=== PATIENT | male | born 1985 | race Caucasian/White ===

== ENCOUNTER 2016-10-23 23:08 | Emergency (ER) | payer OTHER ==
[2016-10-24] MEDS ORDERED: MAALOX 30 ML SUSP *UDC As Ordered ONE (00:04)
[2016-10-24] MEDS ORDERED: LIDOCAINE VISCOUS 2% SOLN 15ML UDC As Ordered ONE (00:04)
[2016-10-24] MEDS ORDERED: diphenhydrAMINE 12.5MG/5ML ELIXIR UDC As Ordered ONE (00:05)
[2016-10-24] MEDS ORDERED: predniSONE 20 MG TAB As Ordered ONE (00:07)
--- NOTE | 2016-10-24 00:16 | EDDOCDS ---
Physician Documentation [facility] Name: Gómez Queen Age: 30 yrs Sex: Male : 1985 Arrival Date: 10/23/2016 Time: 23:08 Bed I2 / M2 Private MD: Other - Complete Info On Cds Disposition: 10/24/16 00:03 Discharged to Home/Self Care. Impression: Acute pharyngitis, unspecified. - Condition is Stable. - Discharge Instructions: Pharyngitis. - Prescriptions for magic mouthwash Mucous Membrane Solution - as directed 5 milliliters by ORAL route 3-4 times daily As needed gargle, swish, spit. Maalox, Liquid Benadryl, Viscous Lidocaine. 1:1:1; 237 milliliter. - Medication Reconciliation, Local Pharmacy Hours form. - Follow up: Emergency Department; When: As needed; Reason: Worsening of conditions. Follow up: Private Physician; When: 2 - 3 days; Reason: Wound/Symptom Recheck, Recheck today's complaints, Continuance of care. - Problem is new. - Symptoms are unchanged. Historical: - Allergies: No known drug Allergies; - Home Meds: 1. none - PMHx: none; - PSHx: none; - Social history: No barriers to communication noted, The patient speaks fluent Divehi, Speaks appropriately for age, Smoking status: Patient states was never smoker of tobacco. - Family history: Not pertinent. - : The pt / caregiver states he / she is not on anticoagulants. Home medication list is obtained from the patient. - Exposure Risk Screening:: None identified. Vital Signs: 10/23 23:11 BP 145 / 78; Pulse 76; Resp 18 S; Temp 97.4(O); Pulse Ox 98% on R/A; Weight 85.73 kg / gr2 189 lbs (R); Height 5 ft. 7 in. (170.18 cm) (R); Pain 3/10; 23:11 Body Mass Index 29.60 (85.73 kg, 170.18 cm) gr2 MDM: 23:41 Strep Screen, Nursing ordered. dt4 23:52 GATS (NEGATIVE STREP SCREEN) Ordered. EDMS 23:56 predniSONE 40 mg PO once; administer with food or milk ordered. dt4 23:56 Lidocaine Viscous Liquid 2 % 15 ml Mucous Membrane in affected area once; to mix with dt4 benadryl and maalox, thank you. ordered. 23:56 Alum-Mag Hydroxide-Simeth Suspension 225 mg-200 mg-25 mg/5 mL 30 ml PO once; only 15ml dt4 please, to mix with benadryl and viscous lido. ordered. 10/24 00:05 diphenhydrAMINE 12.5 mg PO once; suspension ordered. dt4 Administered Medications: 00:05 CANCELLED (Other Intervention Used): diphenhydrAMINE (1 mg/kg) Liquid 1 mg/kg PO once; dt4 15ml, to mix with maalox and viscous lidocaine. thank you. 00:10 Drug: Alum-Mag Hydroxide-Simeth 30 ml [aluminum-mag hydroxide-simethicone 225 mg-200 slm mg-25 mg/5 mL oral susp (30 mL)] {Note: 15 ml.} Route: PO; 00:10 Drug: diphenhydrAMINE 12.5 mg Route: PO; slm 00:11 Drug: predniSONE 40 mg [prednisone 20 mg tablet (2 tabs)] Route: PO; slm 00:11 Drug: Lidocaine Viscous 15 ml [Lidocaine Viscous 2 % mucosal solution (15 mL)] Route: slm Mucous Membrane; Site: affected area; Signatures: Dispatcher MedHost EDDelma FloresRN RN Penelope Duran RN RN ld5 Sydnee Todd,TABULATING MACHINE MECHANIC TABULATING MACHINE MECHANIC slAnahi Harden PA-C PA-C dt4 The chart was reviewed and I authenticate all verbal orders and agree with the evaluation and treatment provided.Corrections: (The following items were deleted from the chart) 00:05 10/23 23:56 diphenhydrAMINE (1 mg/kg) Liquid 1 mg/kg PO once; 15ml, to mix with maalox dt4 and viscous lidocaine. thank you. ordered. dt4 MTDD
--- NOTE | 2016-10-24 00:16 | EDDOCDS ---
Nurse's Notes [facility] Name: Gómez Queen Age: 30 yrs Sex: Male : 1985 Arrival Date: 10/23/2016 Time: 23:08 Bed I2 / M2 Private MD: Other - Complete Info On Cds Diagnosis: Acute pharyngitis, unspecified Presentation: 10/23 23:22 Presenting complaint: Patient states: Started coughing at 0300. Had a severe episode jo3 that produced significant amount of bright red bloody mucous. Has spit up blood intermittently through the day. Reports normal stool. Adult Sepsis Screening: The patient does not have new or worsening altered mentation. Patient's respiratory rate is less than 22. Systolic blood pressure is greater than 100. Patient has a qSOFA score of 0- Negative Sepsis Screen. Suicide/Homicide risk assessment- the patient denies having any suicidal and/or homicidal ideations and does not present with any other emotional, behavioral or mental health complaints. Status: The patient is an active duty director of field service. Transition of care: patient was not received from another setting of care. 23:22 Method Of Arrival: Walkin/Carried/Asstd jo3 23:31 Acuity: MONIQUE Level 4 jo3 Triage Assessment: 23:26 General: Appears in no apparent distress, comfortable, Behavior is appropriate for age, jo3 cooperative. Pain: Location: Throat. HIV screening NA for this visit Offered previously. Neurological: Level of Consciousness is awake, alert, Oriented to person, place, time. Respiratory: Airway is patent Respiratory effort is even, unlabored. Derm: Skin is pink, warm & dry. Historical: - Allergies: No known drug Allergies; - Home Meds: 1. none - PMHx: none; - PSHx: none; - Social history: No barriers to communication noted, The patient speaks fluent Persian, Speaks appropriately for age, Smoking status: Patient states was never smoker of tobacco. - Family history: Not pertinent. - : The pt / caregiver states he / she is not on anticoagulants. Home medication list is obtained from the patient. - Exposure Risk Screening:: None identified. Screenin/23 00:11 Screening information is obtained from the patient. Fall risk: No risks identified. slm Assistance ADL's: requires no assistance with activities of daily living. Abuse/DV Screen: The patient / caregiver reports he/she is: not in a situation that causes fear, pain or injury. Nutritional screening: No deficits noted. Advance Directives: Currently, there is no health care proxy. There is no active DNR order. There is no living will. There is no Power of [place]. Advance directive information has not previously been placed in an [facility] medical record. home support is adequate. Assessment: 10/23 23:46 General: Appears in no apparent distress, Behavior is cooperative. Neurological: Level ld5 of Consciousness is awake, alert. EENT: Throat is reddened with gag reflex present. Respiratory: Airway is patent Respiratory effort is even, unlabored. Derm: Skin is intact, Skin is dry. 10/24 00:15 Reassessment: Patient appears in no apparent distress at this time. [facility] Vital Signs: 10/23 23:11 BP 145 / 78; Pulse 76; Resp 18 S; Temp 97.4(O); Pulse Ox 98% on R/A; Weight 85.73 kg gr2 (R); Height 5 ft. 7 in. (170.18 cm) (R); Pain 3/10; 23:11 Body Mass Index 29.60 (85.73 kg, 170.18 cm) gr2 Vitals: 23:11 Log In Time: October 23, 2016 at 23:11. gr2 23:51 Strep Screen is obtained and tested: Negative, a GATSNEG culture is ordered in [facility] ld5 and sent. ED Course: 23:10 Patient visited by Kathe Yo. gr2 23:10 Other - Complete Info On Cds is Private Physician. gr2 23:10 Patient moved to Waiting gr2 23:13 Patient visited by Kathe Yo. gr2 23:13 Patient moved to Pre RCE gr2 23:30 Patient moved to I2 / M2 jo3 23:31 [facility] dt4 23:31 Carlo Menendez DO is Attending Physician. dt4 23:31 Triage Initiated jo3 23:32 Patient visited by Anahi Oliver PA-C. dt4 23:47 Patient visited by Penelope Sanchez RN. ld5 10/24 00:11 The patient / caregiver is instructed regarding the plan of care and ED course. Patient slm has correct armband on for positive identification. Bed in low position. Call light in reach. Side rails up X 1. 00:11 No IV's were initiated during this patient's visit. No procedures done that require slm assistance. 00:12 Patient visited by Sydnee Todd LPN. slm 00:15 Sydnee Todd LPN is Primary Nurse. sl 00:15 Patient visited by Sydnee Todd LPN. [facility] Administered Medications: 00:05 CANCELLED (Other Intervention Used): diphenhydrAMINE (1 mg/kg) Liquid 1 mg/kg PO once; dt4 15ml, to mix with maalox and viscous lidocaine. thank you. 00:10 Drug: Alum-Mag Hydroxide-Simeth 30 ml [aluminum-mag hydroxide-simethicone 225 mg-200 slm mg-25 mg/5 mL oral susp (30 mL)] {Note: 15 ml.} Route: PO; 00:10 Drug: diphenhydrAMINE 12.5 mg Route: PO; slm 00:11 Drug: predniSONE 40 mg [prednisone 20 mg tablet (2 tabs)] Route: PO; slm 00:11 Drug: Lidocaine Viscous 15 ml [Lidocaine Viscous 2 % mucosal solution (15 mL)] Route: slm Mucous Membrane; Site: affected area; Order Results: There are currently no results for this order. Outcome: 00:03 Discharge ordered by Provider. dt4 00:12 No special radiology studies were completed. Property :[facility] 00:12 Discharge Assessment: patient administered narcotics - no. slm 00:15 The following High Risk Discharge criteria are identified: None. Discharged to home slm ambulatory, with significant other. Condition: good. Discharge instructions given to patient, Instructed on discharge instructions, follow up and referral plans. medication usage, Demonstrated understanding of instructions, medications, Pt was receptive of discharge instructions/ teaching. Prescriptions given X 1. 00:15 Patient left the ED. [facility] Signatures: Delma Neal,RN RN gena3 Penelope Sanchez RN RN hero5 Kathe Yo gr2 Sydnee Todd LPN LPN [facility] Anahi Oliver, MERCY PAArturo dt4 MTDD
--- NOTE | 2016-10-26 01:17 | EDDOCDS ---
Physician Documentation [facility] Name: Gómez Queen Age: 30 yrs Sex: Male : 1985 Arrival Date: 10/23/2016 Time: 23:08 Bed I2 / M2 Private MD: Other - Complete Info On Cds Disposition: 10/24/16 00:03 Discharged to Home/Self Care. Impression: Acute pharyngitis, unspecified. - Condition is Stable. - Discharge Instructions: Pharyngitis. - Prescriptions for magic mouthwash Mucous Membrane Solution - as directed 5 milliliters by ORAL route 3-4 times daily As needed gargle, swish, spit. Maalox, Liquid Benadryl, Viscous Lidocaine. 1:1:1; 237 milliliter. - Medication Reconciliation, Local Pharmacy Hours form. - Follow up: Emergency Department; When: As needed; Reason: Worsening of conditions. Follow up: Private Physician; When: 2 - 3 days; Reason: Wound/Symptom Recheck, Recheck today's complaints, Continuance of care. - Problem is new. - Symptoms are unchanged. Historical: - Allergies: No known drug Allergies; - Home Meds: 1. none - PMHx: none; - PSHx: none; - Social history: No barriers to communication noted, The patient speaks fluent Kiswahili, Speaks appropriately for age, Smoking status: Patient states was never smoker of tobacco. - Family history: Not pertinent. - : The pt / caregiver states he / she is not on anticoagulants. Home medication list is obtained from the patient. - Exposure Risk Screening:: None identified. Vital Signs: 10/23 23:11 BP 145 / 78; Pulse 76; Resp 18 S; Temp 97.4(O); Pulse Ox 98% on R/A; Weight 85.73 kg / gr2 189 lbs (R); Height 5 ft. 7 in. (170.18 cm) (R); Pain 3/10; 23:11 Body Mass Index 29.60 (85.73 kg, 170.18 cm) gr2 MDM: 23:41 Strep Screen, Nursing ordered. dt4 23:52 GATS (NEGATIVE STREP SCREEN) Ordered. EDMS 23:56 predniSONE 40 mg PO once; administer with food or milk ordered. dt4 23:56 Lidocaine Viscous Liquid 2 % 15 ml Mucous Membrane in affected area once; to mix with dt4 benadryl and maalox, thank you. ordered. 23:56 Alum-Mag Hydroxide-Simeth Suspension 225 mg-200 mg-25 mg/5 mL 30 ml PO once; only 15ml dt4 please, to mix with benadryl and viscous lido. ordered. 10/24 00:05 diphenhydrAMINE 12.5 mg PO once; suspension ordered. dt4 00:25 [facility] Payment Agreement was scanned into [employer] and attached to record. [facility] 00:26 Financial registration complete. [facility] 12:12 T-Sheet-- Draft Copy was scanned into [employer] and attached to record. gb Administered Medications: 00:05 CANCELLED (Other Intervention Used): diphenhydrAMINE (1 mg/kg) Liquid 1 mg/kg PO once; dt4 15ml, to mix with maalox and viscous lidocaine. thank you. 00:10 Drug: Alum-Mag Hydroxide-Simeth 30 ml [aluminum-mag hydroxide-simethicone 225 mg-200 slm mg-25 mg/5 mL oral susp (30 mL)] {Note: 15 ml.} Route: PO; 00:10 Drug: diphenhydrAMINE 12.5 mg Route: PO; slm 00:11 Drug: predniSONE 40 mg [prednisone 20 mg tablet (2 tabs)] Route: PO; slm 00:11 Drug: Lidocaine Viscous 15 ml [Lidocaine Viscous 2 % mucosal solution (15 mL)] Route: slm Mucous Membrane; Site: affected area; Signatures: Dispatcher MedHo EDAnastasiya Cano, Kwaku Reg Delma ReneRN RN Penelope Duran RN RN hero5 Sydnee Todd LPN LPN slm Anahi Oliver PA-C PA-C dt4 Hook, Sandra [facility] The chart was reviewed and I authenticate all verbal orders and agree with the evaluation and treatment provided.Corrections: (The following items were deleted from the chart) 00:05 10/23 23:56 diphenhydrAMINE (1 mg/kg) Liquid 1 mg/kg PO once; 15ml, to mix with maalox dt4 and viscous lidocaine. thank you. ordered. dt4 Attachments: 10/24 00:25 [facility] 12:12 T-Sheet-- Draft Copy gb Chart Complete MTDD
--- NOTE | 2016-10-26 01:17 | EDDOCDS ---
Physician Documentation [facility] Name: Gómez Queen Age: 30 yrs Sex: Male : 1985 Arrival Date: 10/23/2016 Time: 23:08 Bed I2 / M2 Private MD: Other - Complete Info On Cds Disposition: 10/24/16 00:03 Discharged to Home/Self Care. Impression: Acute pharyngitis, unspecified. - Condition is Stable. - Discharge Instructions: Pharyngitis. - Prescriptions for magic mouthwash Mucous Membrane Solution - as directed 5 milliliters by ORAL route 3-4 times daily As needed gargle, swish, spit. Maalox, Liquid Benadryl, Viscous Lidocaine. 1:1:1; 237 milliliter. - Medication Reconciliation, Local Pharmacy Hours form. - Follow up: Emergency Department; When: As needed; Reason: Worsening of conditions. Follow up: Private Physician; When: 2 - 3 days; Reason: Wound/Symptom Recheck, Recheck today's complaints, Continuance of care. - Problem is new. - Symptoms are unchanged. Historical: - Allergies: No known drug Allergies; - Home Meds: 1. none - PMHx: none; - PSHx: none; - Social history: No barriers to communication noted, The patient speaks fluent Turkmen, Speaks appropriately for age, Smoking status: Patient states was never smoker of tobacco. - Family history: Not pertinent. - : The pt / caregiver states he / she is not on anticoagulants. Home medication list is obtained from the patient. - Exposure Risk Screening:: None identified. Vital Signs: 10/23 23:11 BP 145 / 78; Pulse 76; Resp 18 S; Temp 97.4(O); Pulse Ox 98% on R/A; Weight 85.73 kg / gr2 189 lbs (R); Height 5 ft. 7 in. (170.18 cm) (R); Pain 3/10; 23:11 Body Mass Index 29.60 (85.73 kg, 170.18 cm) gr2 MDM: 23:41 Strep Screen, Nursing ordered. dt4 23:52 GATS (NEGATIVE STREP SCREEN) Ordered. EDMS 23:56 predniSONE 40 mg PO once; administer with food or milk ordered. dt4 23:56 Lidocaine Viscous Liquid 2 % 15 ml Mucous Membrane in affected area once; to mix with dt4 benadryl and maalox, thank you. ordered. 23:56 Alum-Mag Hydroxide-Simeth Suspension 225 mg-200 mg-25 mg/5 mL 30 ml PO once; only 15ml dt4 please, to mix with benadryl and viscous lido. ordered. 10/24 00:05 diphenhydrAMINE 12.5 mg PO once; suspension ordered. dt4 00:25 [facility] Payment Agreement was scanned into [employer] and attached to record. [facility] 00:26 Financial registration complete. [facility] 12:12 T-Sheet-- Draft Copy was scanned into [employer] and attached to record. gb Administered Medications: 00:05 CANCELLED (Other Intervention Used): diphenhydrAMINE (1 mg/kg) Liquid 1 mg/kg PO once; dt4 15ml, to mix with maalox and viscous lidocaine. thank you. 00:10 Drug: Alum-Mag Hydroxide-Simeth 30 ml [aluminum-mag hydroxide-simethicone 225 mg-200 slm mg-25 mg/5 mL oral susp (30 mL)] {Note: 15 ml.} Route: PO; 00:10 Drug: diphenhydrAMINE 12.5 mg Route: PO; slm 00:11 Drug: predniSONE 40 mg [prednisone 20 mg tablet (2 tabs)] Route: PO; slm 00:11 Drug: Lidocaine Viscous 15 ml [Lidocaine Viscous 2 % mucosal solution (15 mL)] Route: slm Mucous Membrane; Site: affected area; Signatures: Dispatcher MedHo EDAnastasiya Cano, Kwaku Reg Delma ReneRN RN Penelope Duran RN RN hero5 Sydnee Todd LPN LPN slm Anahi Oliver PA-C PA-C dt4 Hook, Sandra [facility] The chart was reviewed and I authenticate all verbal orders and agree with the evaluation and treatment provided.Corrections: (The following items were deleted from the chart) 00:05 10/23 23:56 diphenhydrAMINE (1 mg/kg) Liquid 1 mg/kg PO once; 15ml, to mix with maalox dt4 and viscous lidocaine. thank you. ordered. dt4 Attachments: 10/24 00:25 [facility] 12:12 T-Sheet-- Draft Copy gb Chart Complete MTDD
--- NOTE | 2016-10-26 01:17 | EDDOCDS ---
Nurse's Notes Name: Gómez Queen Age: 30 yrs Sex: Male : 1985 Arrival Date: 10/23/2016 Time: 23:08 Bed I2 / M2 Private MD: Other - Complete Info On Cds Diagnosis: Acute pharyngitis, unspecified Presentation: 10/23 23:22 Presenting complaint: Patient states: Started coughing at 0300. Had a severe episode jo3 that produced significant amount of bright red bloody mucous. Has spit up blood intermittently through the day. Reports normal stool. Adult Sepsis Screening: The patient does not have new or worsening altered mentation. Patient's respiratory rate is less than 22. Systolic blood pressure is greater than 100. Patient has a qSOFA score of 0- Negative Sepsis Screen. Suicide/Homicide risk assessment- the patient denies having any suicidal and/or homicidal ideations and does not present with any other emotional, behavioral or mental health complaints. Status: The patient is an active duty direct service provider. Transition of care: patient was not received from another setting of care. 23:22 Method Of Arrival: Walkin/Carried/Asstd jo3 23:31 Acuity: MONIQUE Level 4 jo3 Triage Assessment: 23:26 General: Appears in no apparent distress, comfortable, Behavior is appropriate for age, jo3 cooperative. Pain: Location: Throat. HIV screening NA for this visit Offered previously. Neurological: Level of Consciousness is awake, alert, Oriented to person, place, time. Respiratory: Airway is patent Respiratory effort is even, unlabored. Derm: Skin is pink, warm & dry. Historical: - Allergies: No known drug Allergies; - Home Meds: 1. none - PMHx: none; - PSHx: none; - Social history: No barriers to communication noted, The patient speaks fluent Welsh, Speaks appropriately for age, Smoking status: Patient states was never smoker of tobacco. - Family history: Not pertinent. - : The pt / caregiver states he / she is not on anticoagulants. Home medication list is obtained from the patient. - Exposure Risk Screening:: None identified. Screenin/23 00:11 Screening information is obtained from the patient. Fall risk: No risks identified. slm Assistance ADL's: requires no assistance with activities of daily living. Abuse/DV Screen: The patient / caregiver reports he/she is: not in a situation that causes fear, pain or injury. Nutritional screening: No deficits noted. Advance Directives: Currently, there is no health care proxy. There is no active DNR order. There is no living will. There is no Power of Sales Associate Fishing. Advance directive information has not previously been placed in an [facility] medical record. home support is adequate. Assessment: 10/23 23:46 General: Appears in no apparent distress, Behavior is cooperative. Neurological: Level ld5 of Consciousness is awake, alert. EENT: Throat is reddened with gag reflex present. Respiratory: Airway is patent Respiratory effort is even, unlabored. Derm: Skin is intact, Skin is dry. 10/24 00:15 Reassessment: Patient appears in no apparent distress at this time. [facility] Vital Signs: 10/23 23:11 BP 145 / 78; Pulse 76; Resp 18 S; Temp 97.4(O); Pulse Ox 98% on R/A; Weight 85.73 kg gr2 (R); Height 5 ft. 7 in. (170.18 cm) (R); Pain 3/10; 23:11 Body Mass Index 29.60 (85.73 kg, 170.18 cm) gr2 Vitals: 23:11 Log In Time: October 23, 2016 at 23:11. gr2 23:51 Strep Screen is obtained and tested: Negative, a GATSNEG culture is ordered in [facility] ld5 and sent. ED Course: 23:10 Patient visited by Kathe Yo. gr2 23:10 Other - Complete Info On Cds is Private Physician. gr2 23:10 Patient moved to Waiting gr2 23:13 Patient visited by Kathe Yo. gr2 23:13 Patient moved to Pre RCE gr2 23:30 Patient moved to I2 / M2 jo3 23:31 Anahi Oliver PA-C [facility]. dt4 23:31 Carlo Menendez DO is Attending Physician. dt4 23:31 Triage Initiated jo3 23:32 Patient visited by Anahi Oliver PA-C. dt4 23:47 Patient visited by Penelope Sanchez RN. ld5 10/24 00:11 The patient / caregiver is instructed regarding the plan of care and ED course. Patient slm has correct armband on for positive identification. Bed in low position. Call light in reach. Side rails up X 1. 00:11 No IV's were initiated during this patient's visit. No procedures done that require slm assistance. 00:12 Patient visited by Sydnee Todd LPN. slm 00:15 Sydnee Todd LPN is Primary Nurse. sl 00:15 Patient visited by Sydnee Todd LPN. sl 00:24 Patient name changed from Gómez\S\C\S\Shideler\S\ to Gómez\S\Hinduism\S\Shideler. EDMS 00:25 [facility] Payment Agreement was scanned into [employer] and attached to record. [facility] 12:12 T-Sheet-- Draft Copy was scanned into [employer] and attached to record. gb Administered Medications: 00:05 CANCELLED (Other Intervention Used): diphenhydrAMINE (1 mg/kg) Liquid 1 mg/kg PO once; dt4 15ml, to mix with maalox and viscous lidocaine. thank you. 00:10 Drug: Alum-Mag Hydroxide-Simeth 30 ml [aluminum-mag hydroxide-simethicone 225 mg-200 slm mg-25 mg/5 mL oral susp (30 mL)] {Note: 15 ml.} Route: PO; 00:10 Drug: diphenhydrAMINE 12.5 mg Route: PO; slm 00:11 Drug: predniSONE 40 mg [prednisone 20 mg tablet (2 tabs)] Route: PO; [facility] 00:11 Drug: Lidocaine Viscous 15 ml [Lidocaine Viscous 2 % mucosal solution (15 mL)] Route: slm Mucous Membrane; Site: affected area; Order Results: Lab Order: GATS (NEGATIVE STREP SCREEN); SPEC'M 10/23/16 23:51 Test: GATS CULTURE (NEG STREP SCR); Value: GATS RESULT NEGATIVE FOR STREP PYOGENES (GROUP A); Status: F Test: GATS CULTURE (NEG STREP SCR); Value: <EXTERNAL COMMENT eCWMed> FULL REPORT IN LAB NOTES (eCW and Medent).; Status: F Outcome: 00:03 Discharge ordered by Provider. dt4 00:12 No special radiology studies were completed. Property :Personal belongings accompany Pt.[facility] 00:12 Discharge Assessment: patient administered narcotics - no. slm 00:15 The following High Risk Discharge criteria are identified: None. Discharged to home sl ambulatory, with significant other. Condition: good. Discharge instructions given to patient, Instructed on discharge instructions, follow up and referral plans. medication usage, Demonstrated understanding of instructions, medications, Pt was receptive of discharge instructions/ teaching. Prescriptions given X 1. 00:15 Patient left the ED. [facility] Signatures: Dispatcher MedHost EDMS Anastasiya Rosales, Reg Reg gb Delma Neal,RN RN jo3 Penelope SanchezRN RN ld5 Kathe Yo gr2 Sydnee Todd,ANDRES [employer]NER STAYER MACHINE OPERATOR [facility] Anahi Oliver PA-C PA-C dt4 Barbie Stanton [facility] Chart Complete MARIBEL
== END 2016-10-24 00:15 | disposition home or self-care (01) ==
LOC: M ED 23:08
DX: J02.9 Acute pharyngitis, unspecified (principal)

== ENCOUNTER → 2017-02-20 | Outpatient (CLI) | payer OTHER ==
--- NOTE | 2017-02-20 09:32 | REP ---
Clinical: shortness of breath. Findings: The bilateral lung cagle are well-aerated, symmetric and clear. No focal consolidation, nodule or mass lesion is appreciated. No evidence for pulmonary interstitial disease or bronchiectasis. The tracheobronchial tree is patent and normal. There is no pleural effusion/reaction or pneumothorax. The mediastinum is normal and without obvious adenopathy. Thoracic aorta without aneurysm. Heart and pericardium are of normal size and appearance. The surrounding musculoskeletal structures are intact. Impression: Normal noncontrast chest CT. Signed by Abel Baird MD 02/20/2017 09:24 A
== END ==
LOC: M RAD 08:38
PROVIDERS: ATTEND Internal Medicine Pulmonary Disease
DX: R06.02 Shortness of breath (principal)

== ENCOUNTER → 2017-02-22 | Outpatient (CLI) | payer OTHER ==
[~2017-02-22] MED LIST: METHACHOLINE KIT (J7674) INH ONE
--- NOTE | 2017-02-22 09:41 | PFTRPT ---
Tech: Montse DOSS RRT Age: 31 Sex: Male Race: Height: 66.25 Inches Weight: 196.00 Lbs BSA: 1.99 Diagnosis: R06.02 METHACHOLINE CHALLENGE REPORT: ORDERING PROVIDER: Fabrizio Joseph M.D. DATE OF SERVICE: 02/22/17 INTERPRETATION: The study was of excellent technical quality. Under protocol, methacholine was administered. At a dose of 2.5 mg (13.875 CDUs), a 21% decline in the FEV1 was noted. The PC20 of 1.94 is significant. Flow rates returned to baseline post bronchodilator administration. IMPRESSION: Positive methacholine challenge study. MTDD
== END ==
LOC: M CARPUL 08:22
PROVIDERS: ATTEND Internal Medicine Pulmonary Disease
DX: R06.02 Shortness of breath (principal)